=== PATIENT | female | born 1990 | race Caucasian/White ===

== ENCOUNTER 2023-03-30 02:52 | Emergency (ER) | payer BC ==
[2023-03-30] MEDS ORDERED: Acetaminophen 500 MG Tab PO ONE (03:18)
[2023-03-30] MEDS ORDERED: Take Home: Acetaminophen/HYDROcodone 325-10 MG, 5 Tab Pack PO ONE (03:56)
== END 2023-03-30 04:20 | disposition home or self-care (01) ==
LOC: LL.ED 02:52
DX: M53.3 Sacrococcygeal disorders, not elsewhere classified (principal); F17.210 Nicotine dependence, cigarettes, uncomplicated
CPT/HCPCS: 72220; 99283; A9270-GY